=== PATIENT | female | born 1985 | race African-American/Black ===

== ENCOUNTER 2020-07-09 13:35 | Emergency (ER) | payer BC ==
[2020-07-09 13:41] VITALS: TEMP 98; BMI 39.3
--- NOTE | 2020-07-09 14:41 | PDOC ---
History of Present Illness - General Chief Complaint: Vaginal Bleeding Stated Complaint: VAGINAL BLEEDING Time Seen by Provider: 07/09/20 14:01 History Source: Patient Exam Limitations: No Limitations - History of Present Illness Travel History: No Initial Comments: 07/09/20 14:36 HISTORY OF PRESENT ILLNESS: 34-year-old 2 para 1 who was referred to the emergency department by her TABLE RUNNER after having ultrasound performed this morning which showed a fibroid uterus. Patient reports she had passed a large clot this morning after strong abdominal cramping consistent with her usual menses. She reports after the clot was passed her pain had improved from a 6 to a 2. Patient was in contact with her TABLE RUNNER who sent her for an ultrasound. No recent travel or sick contacts. PAST MEDICAL HISTORY: Denies past medical history SURGICAL HISTORY: Denies ALLERGIES: No known drug allergies REVIEW OF SYSTEMS General/Constitutional: Denies fever or chills. Denies weakness, weight change. HEENT: Denies change in vision. Denies ear pain or discharge. Denies sore throat. Cardiovascular: Denies chest pain or shortness of breath. Respiratory: Denies cough, wheezing, or hemoptysis. Gastrointestinal: Denies nausea, vomiting, diarrhea or constipation. Denies rectal bleeding. Genitourinary: See HPI Musculoskeletal: Denies joint or muscle swelling or pain. Denies neck or back pain. Skin and breasts: Denies rash or easy bruising. Neurologic: Denies headache, vertigo, loss of consciousness, or loss of sensation. Psychiatric: Denies depression or anxiety. Endocrine: Denies increased thirst. Denies abnormal weight change. Hematologic/Lymphatic: Denies anemia, easy bleeding, or history of blood clots. Allergic/Immunologic: Denies hives or skin allergy. Denies latex allergy. PHYSICAL EXAM General Appearance: Well-appearing, appropriately dressed. No apparent distress, no intoxication. Respiratory/Chest: Lungs CTAB. No shortness of breath, chest tenderness, respiratory distress, accessory muscle use. No crackles, rales, rhonchi, stridor, wheezing, dullness Cardiovascular: RRR. S1, S2. No JVD, murmur, bradycardia, tachycardia. Vascular Pulses: Dorsalis-Pedis (R): 2+, Dorsalis-Pedis (L): 2+ Gastrointestinal/Abdominal: Normal bowel sounds. Abdomen soft, non-distended. No tenderness or rebound tenderness. No organomegaly, pulsatile mass, guarding, hernia, hepatomegaly, splenomegaly. Past History - Medical History Allergies/Adverse Reactions: Allergies Allergy/AdvReac Type Severity Reaction Status Date / Time No Known Allergies Allergy Verified 07/09/20 13:41 Home Medications: Ambulatory Orders Dextroamphetamine/Amphetamine [Adderall Xr 20 mg Capsule] 20 mg PO DAILY 07/09/20 Levocetirizine Dihydrochloride [Xyzal] 5 mg PO PRN 07/09/20 Asthma: Yes COPD: No - Reproductive History Is Patient Now?: Yes - Psycho-Social/Smoking History Smoking History: Never smoked Have you smoked in the past 12 months: No Information on smoking cessation initiated: No - Substance Abuse Hx (Audit-C & DAST Scrn) How often the patient has a drink containing alcohol: Never Score: In Men: 4 or > Positive; In Women: 3 or > Positive: 0 Screen Result (Pos requires Nsg. Audit-10AR): Negative In the last yr the pt used illegal drug/Rx for NonMed reason: No Score: Yes response is considered Positive: 0 Screen Result (Positive result requires Nsg. DAST-10): Negative *Physical Exam - Vital Signs Last Vital Signs Temp Pulse Resp BP Pulse Ox 98.0 F 72 18 105/66 100 07/09/20 13:39 07/09/20 13:39 07/09/20 13:39 07/09/20 13:39 07/09/20 13:39 ED Treatment Course - LABORATORY CBC & Chemistry Diagram: 07/09/20 15:00 07/09/20 15:00 Medical Decision Making - Medical Decision Making 07/09/20 14:39 A/P: 34-year-old woman with vaginal bleeding following spontaneous Labs Contact FIRE SUPERVISOR-Dr. Rich. Dr. Montiel is covering [phone]. 07/09/20 16:05 Laboratory Tests 07/09/20 07/09/20 07/09/20 15:00 15:00 15:00 WBC 8.6 RBC 4.48 Hgb 8.9 L Hct 29.7 L MCV 66.3 L MCH 19.9 L MCHC 30.1 L RDW 20.3 H Plt Count 325 MPV 8.5 Absolute Neuts (auto) 5.1 Neutrophils % 59.3 Lymphocytes % 33.8 Monocytes % 5.4 Eosinophils % 0.4 Basophils % 1.1 Nucleated RBC % 0 PT with INR 12.20 INR 1.03 PTT (Actin FS) 33.3 Sodium Potassium Chloride Carbon Dioxide Anion Gap BUN Creatinine Est GFR (CKD-EPI)AfAm Est GFR (CKD-EPI)NonAf Random Glucose Calcium Beta HCG, Quant Urine Color Red Urine Appearance Turbid Urine pH 5.0 Ur Specific [place] 1.026 Urine Protein 3+ H Urine Glucose (UA) Negative Urine Ketones 1+ H Urine Blood 3+ H Urine Nitrite Negative Urine Bilirubin Negative Urine Urobilinogen 1.0 Ur Leukocyte Esterase 1+ H Urine WBC (Auto) 10 Urine RBC (Auto) 58106 Urine Casts (Auto) 1 U Epithel Cells (Auto) 7 Urine Bacteria (Auto) 27 Urine HCG, Qual Positive 07/09/20 15:00 WBC RBC Hgb Hct MCV MCH MCHC RDW Plt Count MPV Absolute Neuts (auto) Neutrophils % Lymphocytes % Monocytes % Eosinophils % Basophils % Nucleated RBC % PT with INR INR PTT (Actin FS) Sodium 138 Potassium 4.2 Chloride 107 Carbon Dioxide 25 Anion Gap 6 L BUN 7.3 Creatinine 0.6 Est GFR (CKD-EPI)AfAm 135.91 Est GFR (CKD-EPI)NonAf 117.26 Random Glucose 79 Calcium 9.0 Beta HCG, Quant 102.8 Urine Color Urine Appearance Urine pH Ur Specific [place] Urine Protein Urine Glucose (UA) Urine Ketones Urine Blood Urine Nitrite Urine Bilirubin Urine Urobilinogen Ur Leukocyte Esterase Urine WBC (Auto) Urine RBC (Auto) Urine Casts (Auto) U Epithel Cells (Auto) Urine Bacteria (Auto) Urine HCG, Qual Case has been discussed with Dr. Montiel the covering TABLE RUNNER. Given laboratory testing and ultrasound results she reports the patient can follow-up with Dr. Rich when she can secure an appointment. He advises no further intervention or testing be performed here. I discussed the physical exam findings, ancillary test results and final diagnoses with the patient. I answered all of the patient's questions. The patient was satisfied with the care received and felt comfortable with the discharge plan and treatment plan. The patient will call their primary care physician within 24 hours to arrange follow-up and will return to the Emergency Department with any new, persistent or worsening symptoms. Portions of this note have been documented using voice recognition software. As a result, errors may occur in the case liner process. Effort has been made to correct all grammatical and case liner error, but some may have been missed which may produce sporadic inaccurate case liner or nonsensical phrases. Discharge - Discharge Information Problems reviewed: Yes Clinical Impression/Diagnosis: Complete Condition: Stable Disposition: HOME - Admission No - Follow up/Referral Referrals: Tesfaye Brown [Primary Care Provider] - Jenny Rich MD [Staff Physician] - - Patient Discharge Instructions Additional Instructions: Dr. Montiel the TABLE RUNNER who was covering for Dr. Rich is aware of ultrasound results and laboratory testing. His recommendation is to follow-up with Dr. Rich within 7 days. You may continue to bleed as this is a normal process of a miscarriage. Take Tylenol as needed for pain. Follow rug cleaner's instructions for appropriate dosage. Return to the emergency department for any dizziness, severe abdominal pain, vaginal bleeding soaking more than 2 pads per hour or for any new or worsening symptoms. Thank you very much for choosing us to provide your emergent healthcare needs. - Post Discharge Activity
[2020-07-09 15:21] LABS: BASO % 1.1 % (0-2.0); EOS % 0.4 % (0-4.5); HEMATOCRIT 29.7 % (32.4-45.2); HEMOGLOBIN 8.9 GM/dL (10.7-15.3); LYMPH % 33.8 % (8-40); MCH 19.9 pg (25.7-33.7); MCHC 30.1 g/dl (32.0-36.0); MEAN CELL VOLUME 66.3 fl (80-96); MEAN PLT VOLUME 8.5 fl (7.5-11.1); MONO % 5.4 % (3.8-10.2); NEUT % 59.3 % (42.8-82.8); PLATELET COUNT 325 K/MM3 (134-434); RBC 4.48 M/mm3 (3.60-5.2); RDW 20.3 % (11.6-15.6); WHITE BLOOD COUNT 8.6 K/mm3 (4.0-10.0)
[2020-07-09 15:28] LABS: INR 1.03 (0.83-1.09); PROTHROMBIN TIME (PATIENT) 12.2 SEC (9.7-13.0)
[2020-07-09 15:30] LABS: ACTIVATED PTT 33.3 SECONDS (25.2-36.5)
[2020-07-09 15:39] LABS: HCG,QUALITATIVE URINE Positive
[2020-07-09 15:40] LABS: EPI CELLS 7 /uL (0-25.1); HYALINE CASTS 1 /uL (0-3.1); URINE APPEARANCE TURBID; URINE BACTERIA 27 /uL (0-1359); URINE BILIRUBIN NEGATIVE (NEGATIVE); URINE COLOR RED; URINE GLUCOSE (UA) NEGATIVE (NEGATIVE); URINE KETONE 1+ (NEGATIVE); URINE LEUK ESTERASE 1+ (NEGATIVE); URINE NITRITE NEGATIVE (NEGATIVE); URINE PROTEIN 3+ (NEGATIVE); URINE RBC 16295 /uL (0-23.9); URINE WBC 10 /uL (0-25.8)
[2020-07-09 15:50] LABS: BLOOD UREA NITROGEN 7.3 mg/dL (7-18); CREATININE 0.6 mg/dL (0.55-1.3); POTASSIUM 4.2 mmol/L (3.5-5.1)
[2020-07-09 15:53] LABS: ANISOCYTOSIS 1+; MACROCYTOSIS 0; PLATELET ESTIMATE NORMAL
[2020-07-09 16:44] VITALS: BP 113/70; PULSE 67
== END 2020-07-09 16:15 | disposition home or self-care (01) ==
LOC: JER 13:35 → EDBD 13:35 → JER 16:15
DX: O03.9 Complete or unspecified spontaneous abortion without complication (principal)
CPT/HCPCS: 36415; 80048; 81003; 84702; 84703; 85025; 85610; 85730; 86850; 86900; 86901; 99284-25